=== PATIENT | male | born 1995 | race Caucasian/White ===

== ENCOUNTER 2019-09-13 03:44 | Emergency (ER) | payer BC ==
[~2019-09-13] VITALS: Ht 175.3 cm; Wt 95.3 kg
[2019-09-13] MEDS ORDERED: NACL 0.9% 2,000 ML IV ONE (03:50)
[2019-09-13] MEDS ORDERED: ONDANSETRON 4 MG/2 ML VIAL IVP ONE (03:50)
[2019-09-13 03:53] VITALS: BP 154/59
[2019-09-13 03:57] LABS: APPEARANCE,URINE CLEAR (CLEAR); BILIRUBIN,URINE NEGATIVE (NEGATIVE); BLOOD, URINE NEGATIVE (NEGATIVE); COLOR,URINE YELLOW (YELLOW); LEUKOCYTE ESTERASE ,URINE TRACE (NEGATIVE); NITRITE, URINE NEGATIVE (NEGATIVE); PH,URINE 5.5 (5.0-9.0); UGLUCOSE NEGATIVE (NEGATIVE)
--- NOTE | 2019-09-13 04:00 | NUR ---
24 YO M BIB FAMILY MEMBERS FOR ETOH INTOXICATION AND POSSIBLY OTHER SUBSTANCE ABUSE. PER FAMILY, PT WAS CELEBRATING AT NIGHT CLUB WITH FAMILY AND DRINKING ALCOHOL. FAMILY STATES "HE HAS BEEN DRUNK BEFORE BUT HE HAS NEVER ACTED LIKE THIS BEFORE". FAMILY STATES THAT WHEN THEY WERE GETTING READY TO LEAVE THEY FOUND PT ON FLOOR OF CLUB BEHAVING AGGRESSIVELY, "YELLING, CUSSING AND SAYING THE DEVIL WAS MAKING HIM ACT THIS WAY". PT REQUIRES WC ASSIST FROM CAR BECAUSE HE WAS REFUSING TO GET OUT OF CAR. STEP FATHER PICKED HIM UP OUT OF CAR AND PLACED INTO WC. PT IS AWAKE STATING "I DIDN'T TAKE ANY DRUGS" IN SLURRED SPEECH. WC ASSIST TO BED, PT ABLE TO AMBULATE WITH ASSIST INTO BED. FOLLOWS COMMAND WITH GUIDANCE. A/O X 4. SKIN NORMAL IN COLOR FOR ETHNICITY, WARM, DRY. PT REPEATS QUESTIONS OVER AND OVER AGAIN "WHY AM I HERE? WHO BROUGHT ME HERE? WHAT ARE YOU DOING TO ME?" . STRONG ETOH ODOR NOTED. PT DENIES NV OR ANY PAIN AT THIS TIME. FAMILY DENIES MEDICAL HX OR RX.
[2019-09-13 04:03] LABS: BARBITURATE, URINE NEG. ng/ml (NEG <=200); BENZODIAZEPINE, URINE NEG. ng/mL (NEG <=200); CANNABINOID, URINE NEG. ng/mL (NEG <=50); COCAINE, URINE NEG. ng/mL (NEG <=300); OPIATE, URINE NEG. ng/mL (NEG <=2000); PHENCYCLIDINE SCREEN,URINE NEG. ng/mL (NEG <=25)
[2019-09-13 04:05] LABS: CARBON DIOXIDE 24.6 mmol/L (21-32); POTASSIUM 3.6 mmol/L (3.5-5.1)
--- NOTE | 2019-09-13 04:05 | NUR ---
AMBULATES TO WITH ASSIST. URINE SAMPLE COLLECTED AND SENT TO LAB.
--- NOTE | 2019-09-13 04:08 | NUR ---
PT REFUSED 4 MG IVP ZOFRAN. PT STATES "I DON'T NEED IT". DR. JO MADE AWARE.
[2019-09-13 04:11] LABS: ALBUMIN 4.6 g/dL (3.4-5.0); TOTAL BILIRUBIN 0.3 mg/dL (0.0-1.0)
[2019-09-13 04:25] LABS: RBC,URINE NONE SEEN /HPF (0-5); WBC,URINE 0-5 /HPF (0-5)
--- NOTE | 2019-09-13 04:35 | NUR ---
PT OBSERVED TO BE SNARLING, GROWLING AT A MALE STAFF MEMBER. WHEN QUESTIONED ABOUT BEHAVIOR, PT STATES "I DIDN'T DO THAT". WILL CONTINUE TO MONITOR.
[2019-09-13] MEDS ORDERED: LORazepam 2 MG/ML VIAL IVP ONE (04:40)
[2019-09-13 04:49] LABS: BASOPHILS # (AUTO) 0.1 K/uL (0.00-0.22); EOSINOPHILS # (AUTO) 0.1 K/uL (0-0.4); EOSINOPHILS % (AUTO) 0.7 % (0.0-4.0); HEMATOCRIT 45.8 % (36-52); HEMOGLOBIN 15.5 g/dL (12.0-18.0); LYMPHOCYTES # (AUTO) 2.7 K/uL (2.0-11.5); LYMPHOCYTES % (AUTO) 31.9 % (20.5-51.1); MEAN CORPUSCULAR HEMOGLOBIN 31 pg (27-31); MEAN CORPUSCULAR HGB CONC 34 g/dL (33-37); MEAN CORPUSCULAR VOLUME 90.2 fL (80-94); MONOCYTES # (AUTO) 0.5 K/uL (0.8-1.0); MONOCYTES % (AUTO) 6.4 % (1.7-9.3); NEUTROPHILS # (AUTO) 5.2 K/uL (1.8-7.7); PLATELET COUNT (AUTO) 322 K/uL (140-450); RED BLOOD CELL COUNT(AUTO) 5.07 MIL/uL (4.20-6.10); RED CELL DISTRIBUTION WIDTH 12.6 % (11.6-13.7); WHITE BLOOD COUNT (AUTO) 8.6 K/uL (4.8-10.8)
--- NOTE | 2019-09-13 04:50 | NUR ---
PT ASKED MULTIPLE TIMES TO CALM DOWN. PT WAS OBSERVED YELLING, CUSSING IN PORTUGUESE AND KHMER AT SOMEONE WHO WAS NOT IN HIS ROOM. AZAEL HOANG HEARD FROM ROOM. DR. JO MADE AWARE.
--- NOTE | 2019-09-13 05:00 | NUR ---
SPOKE WITH FAMILY ABOUT PREVIOUS PSYCH ISSUES OR MENTAL ILLNESS. PT'S MOM STATES THE ONLY INCIDENT SHE CAN THINK OF IS WHEN HE WAS IN MIDDLE SCHOOL HE WAS TREATED FOR ANXIETY/DEPRESSION. MOM REITERATES THAT SHE HAS NEVER SEEN HIM ACT LIKE THIS BEFORE AND DENIES KNOWLEDGE OF ANY DRUG USE.
--- NOTE | 2019-09-13 05:05 | NUR ---
PT YELLING/CUSSING, TRYING TO GET OUT OF BED AND PULL IV OUT. DR. JO MADE AWARE. ORDERS FOR 1 MG IVP ATIVAN RECEIVED. Addendum: 09/13/19 at 0537 by [facility] PT WILL BE EVAL BY TELEPSYCH FOR ACUTE PSYCHOSIS RULE OUT, PER DR. JO.
--- NOTE | 2019-09-13 05:10 | NUR ---
RECEIVED 1 MG IVP ATIVAN. WILL CONTINUE TO MONITOR.
--- NOTE | 2019-09-13 05:15 | NUR ---
SPOKE WITH FAMILY TO UPDATE ON PLAN OF CARE.
--- NOTE | 2019-09-13 05:25 | NUR ---
RESTING WITH EYES CLOSED. VSS. AROUSABLE TO SHAKING. AWAITING TELEPSYCH CONSTULT.
--- NOTE | 2019-09-13 06:15 | NUR ---
ATTEMPTED TELEPSYCH CONSULT. DID NOT COMPLETE DUE TO PT UNABLE TO STAY AWAKE DURING CONSULTATION.TELEPSYCH DOCTOR STATES HE WILL CALL BACK WHEN PT IS ABLE TO ANSWER QUESTIONS.
--- NOTE | 2019-09-13 07:06 | NUR ---
Recieved report from Demarco DIAZ.
--- NOTE | 2019-09-13 07:07 | NUR ---
REPORT GIVEN TO EMILY BHANDARI. TRANSFER OF CARE AT THIS TIME.
[2019-09-13 07:15] LABS: ACETAMINOPHEN < 0.5 ug/ml (10-30); SALICYLATE < 2.8 mg/dL (2.8-20.0)
--- NOTE | 2019-09-13 07:29 | NUR ---
Per Dr Carranza PT to have telepsych. PT arousable to light stimulation, denies hallucinations at this time, acting appropriately. VSS.
--- NOTE | 2019-09-13 08:45 | NUR ---
NANCY TALKING WITH PT AT THIS TIME.
--- NOTE | 2019-09-13 09:09 | NUR ---
Father at bedside.
--- NOTE | 2019-09-13 09:12 | NUR ---
PT SLEEPING IN BED, AROUSABLE TO LIGHT STIMULUS, SPEECH DELAYED, AAOX4, DENIES PAIN AT THIS TIME, VSS. PT BROTHER AT BEDSIDE
[2019-09-13 10:05] VITALS: BP 117/58
--- NOTE | 2019-09-13 10:05 | NUR ---
Patient discharged with v/s stable. Written and verbal after care instructions given and explained. Patient verbalized understanding. Ambulatory with steady gait. All questions addressed prior to discharge. Advised to follow up with PMD.
== END 2019-09-13 10:05 | disposition home or self-care (01) ==
LOC: MED 03:44
DX: F10.129 Alcohol abuse with intoxication, unspecified (principal); F98.9 Unspecified behavioral and emotional disorders with onset usually occurring in childhood and adolescence
CPT/HCPCS: 36415; 80053; 80305; 81001; 85025; 96374; 99283; G0480; G0482; J2060; J7030; J2405